=== PATIENT | female | born 1950 | race Caucasian/White ===

== ENCOUNTER 2018-06-08 21:51 | Observation (INO) ==
[2018-06-08] MEDS ORDERED: 0.9 % Sodium Chloride 500 ML IVC ONE (22:28)
[2018-06-08] MEDS ORDERED: Aspirin 81 MG TAB.CHEW PO ONE (22:28)
--- NOTE | 2018-06-08 22:37 | Emergency Department Note ---
Disposition Clinical Impression: Chest pain Qualifiers: Chest pain type: precordial pain Qualified Code(s): R07.2 - Precordial pain Disposition: Admitted As Inpatient Condition: Good Forms: ED Satisfaction Letter, Work/School Release Time of Disposition: 00:23 Abdominal Pain HPI - General Chief Complaint: ED Abdominal Pain Stated Complaint: abdominal pain/cp Time Seen by Provider: 06/08/18 22:06 Source: patient Mode of arrival: ambulatory Limitations: no limitations Nursing Notes Reviewed: Yes Vital Signs Reviewed: Yes - History of Present Illness HPI Narrative: Patient is a 67-year-old female presenting with chest pain and difficulty breathing with abdominal pain. 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 She is currently followed by vascular for this. Patient states that last night around 6:30 PM she began to have mid sternal chest pain described as pressure that radiated throughout her sites bilaterally and into her back. She also has associated shortness of breath nausea without vomiting. She denies diaphoresis. She denies exertional component. She states the pain resolved on its own. She states that she was pain-free throughout today, however this evening she began to have similar pains in her chest. She became concerned given her history of aneurysm and felt as though she needed to be evaluated. She states that when she was diagnosed with her aneurysm multiple years ago, and her she had pain that went straight to her back. On examination, patient denies any current abdominal or chest pain. She does state that abdominal pain is worse after eating. Patient also reports dysuria without hematuria. Pain Scale: 0 - Related Data Home Medications Medication Instructions Recorded Confirmed Labetalol 06/01/17 Lisinopril 06/01/17 Plavix 06/01/17 Previous Rx's Medication Instructions Recorded Tramadol HCl [Ultram] 50 mg PO TID PRN 3 Days #5 tab 08/09/17 Allergies Allergy/AdvReac Type Severity Reaction Status Date / Time levofloxacin [From Levaquin] AdvReac Muscle Pain Verified 08/09/17 17:45 prochlorperazine AdvReac Agitated Verified 08/09/17 17:45 [From Compazine] Sulfa (Sulfonamide AdvReac See Verified 08/09/17 17:45 Antibiotics) Comments sulfamethoxazole AdvReac See Verified 08/09/17 17:46 [From Bactrim] Comments trimethoprim [From Bactrim] AdvReac See Verified 08/09/17 17:46 Comments All systems ED: reviewed and negative except as stated. Review of Systems: As Per HPI Constitutional: Denies: fever, chills, weakness, weight change ENT ED: Denies: ear pain, throat pain, dental pain, hearing loss, epistaxis, congestion, dysphagia Cardiovascular: Reports: chest pain, dyspnea on exertion. Denies: palpitations, syncope Respiratory: Reports: dyspnea. Denies: cough, wheezes, hemoptysis Gastrointestinal: Reports: abdominal pain, nausea. Denies: vomiting, diarrhea, hematemesis Genitourinary: Reports: dysuria. Denies: frequency, hematuria Musculoskeletal: Reports: back pain Integumentary: Denies: rash Neurological: Denies: headache, weakness, numbness, paresthesias, confusion Psychiatric: Denies: anxiety Endocrine: Denies: fatigue Hematological/Lymphatic: Denies: easy bleeding Abdominal Pain PMH - Past Medical History Medical history: Reports: hypertension Female Surgical History: Reports: appendectomy, , cholecystectomy Psychiatric history: Reports: no psych history - Social History Smoking status: Never smoker Alcohol use: Reports: none Drug use: Reports: none Physical Exam - General Limitations: no limitations General appearance: alert, in no apparent distress - Head Head exam: atraumatic, normocephalic, normal inspection - Eye Eye exam: Present: normal appearance, PERRL, EOMI - ENT ENT exam: normal exam, normal oropharynx, mucous membranes moist - Neck Neck exam: Present: normal inspection, full ROM, trachea midline - Chest Chest inspection: Present: normal inspection, symmetric chest wall rise - Respiratory Respiratory exam: Present: normal lung sounds bilaterally - Cardiovascular Cardiovascular exam: Present: regular rate, normal rhythm, normal heart sounds - Abdominal Exam Abdominal exam: Present: soft, Non-Tender. Absent: tenderness, distention, guarding, rebound, rigidity - Extremities Exam Extremities exam: Present: normal inspection, full ROM, normal capillary refill. Absent: tenderness, pedal edema - Expanded Lower Extremity Exam Neurovascular/Tendon exam: Absent: motor deficit, sensory deficit, tendon de ficit - Back Exam Back exam: Present: normal inspection, full ROM. Absent: tenderness - Neurological Exam Neurological exam: Present: alert, oriented X3 - Psychiatric Psychiatric exam: Present: normal affect, normal mood - Skin Skin exam: Present: warm, dry, intact, normal color Course Vital Signs Temperature 98.2 F 06/08/18 22:01 Pulse Rate 61 06/08/18 22:01 Respiratory Rate 16 06/08/18 22:01 Blood Pressure 180/90 06/08/18 22:01 O2 Sat by Pulse Oximetry 97 06/08/18 22:01 Temperature 98.2 F 06/08/18 22:01 Pulse Rate 55 06/08/18 23:13 Respiratory Rate 12 06/08/18 23:13 Blood Pressure 145/64 06/08/18 23:13 O2 Sat by Pulse Oximetry 96 06/08/18 23:13 Oxygen Delivery Oxygen Delivery Room Air Abdominal Pain - MDM Narrative Medical decision making narrative: Patient is a 67-year-old female presenting with chest pain and shortness of breath. Patient with past medical history genital for hypertension, hyperlipidemia and stated aneurysms within the aorta. Patient with symptoms significant for last night with pressure in the mid chest with increased shortness of breath and recurrence this evening. Patient on arrival has no chest pain. Patient also had associated nausea. Pain was nonexertional and relieved on its own.. Patient is not on oxygen at home. Patient on arrival, is afebrile and slightly hypertensive at with 180 systolic blood pressure with repeat blood pressure 150 systolic.. 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 Concern with stated symptoms for PE versus continued aneurysm or dissection versus ACS. CBC, BMP, urinalysis, troponin are all within normal limits. CXR negative. CTA of the chest and abdomen show no sign of aneurysm, dissection, thrombus or emboli. There was an incidental finding of concern for lap band placement. Patient had lap band procedure performed in 2003 at [facility]. At this point in time, concern for ACS, feels that the patient would benefit for admission for further evaluation and recommendations. Also discussed outpatient follow-up with the LAP-BAND for concern of positioning. I did speak directly with the radiologist concerning this. Recommend continued follow-up. At this point in time, we will discuss the patient with hospitalist for admission. - Medical Records Medical records reviewed: Yes I reviewed the patient's medical records. - Lab Data Lab results reviewed: Yes I reviewed the patient's lab results. Result diagrams: 06/08/18 22:42 06/08/18 22:42 Lab Results 06/08/18 06/08/18 06/08/18 Range/Units 22:19 22:42 22:42 WBC (4.3-11.1) K/mcL RBC (3.82-4.97) M/mcL Hgb (11.5-15.4) g/dL Hct (35.3-44.9) % MCV (83.0-100.0) fL MCH (28.0-33.3) pg MCHC (31.6-35.5) g/dL RDW (11.5-14.5) % Plt Count (140-400) K/mcL MPV (9.4-12.4) fL Immature Gran % (0-4) % Seg Neutrophils % % Lymphocytes % % Monocytes % % Eosinophils % % Basophils % % Neutrophils # (1.6-8.9) K/mcL Lymphocytes # (0.6-4.6) K/mcL Monocytes # (0.0-1.3) K/mcL Eosinophils # (0.0-0.6) K/mcL Basophils # (0.0-0.2) K/mcL Platelet Estimate (Normal) Immature Plt Fraction (1.1-6.1) % Microcytosis (Not Present) PT 11.7 (9.4-12.1) Seconds INR 1.0 APTT 35.3 (26.0-36.0) Seconds Sodium 138 (136-145) mEq/L Potassium 4.0 (3.5-5.1) mEq/L Chloride 103 (98-107) mEq/L Carbon Dioxide 28 (23-29) mEq/L BUN 15 (8-23) mg/dL Creatinine 0.78 (0.60-1.20) mg/dL Est GFR ( Amer) > 60 (> 60) Est GFR (Non-Af Amer) > 60 (> 60) BUN/Creatinine Ratio 19 (6-26) Glucose 127 H (70-105) mg/dL Calculated Osmolality 288 (280-300) Calcium 9.4 (8.6-10.3) mg/dL Total Bilirubin 0.5 (0.3-1.0) mg/dL Direct Bilirubin 0.1 (0.0-0.2) mg/dL Indirect Bilirubin 0.4 (0.0-1.2) mg/dL AST 13 (13-39) Units/L ALT 13 (7-52) Units/L Alkaline Phosphatase 49 (34-104) Units/L Troponin I (< 0.04) ng/mL Serum Total Protein 6.4 (6.4-8.9) g/dL Albumin 3.9 (3.5-5.7) g/dL Globulin 2.5 (2.4-3.5) g/dL Albumin/Globulin Ratio 1.6 (1.1-2.2) Lipase 29 (11-82) Units/L Urine Color Yellow (Yellow) Urine Clarity Clear (Clear) Urine pH 7.0 (5.0-8.0) pH Units Ur Specific [place] < 1.005 L (1.010-1.025) Urine Protein Negative (Neg-Trace) mg/dL Urine Glucose (UA) Normal (Normal) mg/dL Urine Ketones Negative (Negative) mg/dL Urine Blood Negative (Negative) Urine Nitrite Negative (Negative) Urine Bilirubin Negative (Negative) Urine Urobilinogen Normal (Normal) mg/dL Ur Leukocyte Esterase Negative (Negative) Ur Culture Indicated? NO (NO) 06/08/18 06/08/18 Range/Units 22:42 22:42 WBC 7.9 (4.3-11.1) K/mcL RBC 5.94 H (3.82-4.97) M/mcL Hgb 12.0 (11.5-15.4) g/dL Hct 39.2 (35.3-44.9) % MCV 66.0 L (83.0-100.0) fL MCH 20.2 L (28.0-33.3) pg MCHC 30.6 L (31.6-35.5) g/dL RDW 15.4 H (11.5-14.5) % Plt Count 186 (140-400) K/mcL MPV 11.4 (9.4-12.4) fL Immature Gran % 0.3 (0-4) % Seg Neutrophils % 61.8 % Lymphocytes % 28.1 % Monocytes % 6.7 % Eosinophils % 2.7 % Basophils % 0.4 % Neutrophils # 4.9 (1.6-8.9) K/mcL Lymphocytes # 2.2 (0.6-4.6) K/mcL Monocytes # 0.5 (0.0-1.3) K/mcL Eosinophils # 0.2 (0.0-0.6) K/mcL Basophils # 0.0 (0.0-0.2) K/mcL Platelet Estimate Normal (Normal) Immature Plt Fraction 4.5 (1.1-6.1) % Microcytosis Present A (Not Present) PT (9.4-12.1) Seconds INR APTT (26.0-36.0) Seconds Sodium (136-145) mEq/L Potassium (3.5-5.1) mEq/L Chloride (98-107) mEq/L Carbon Dioxide (23-29) mEq/L BUN (8-23) mg/dL Creatinine (0.60-1.20) mg/dL Est GFR ( Amer) (> 60) Est GFR (Non-Af Amer) (> 60) BUN/Creatinine Ratio (6-26) Glucose (70-105) mg/dL Calculated Osmolality (280-300) Calcium (8.6-10.3) mg/dL Total Bilirubin (0.3-1.0) mg/dL Direct Bilirubin (0.0-0.2) mg/dL Indirect Bilirubin (0.0-1.2) mg/dL AST (13-39) Units/L ALT (7-52) Units/L Alkaline Phosphatase (34-104) Units/L Troponin I < 0.03 (< 0.04) ng/mL Serum Total Protein (6.4-8.9) g/dL Albumin (3.5-5.7) g/dL Globulin (2.4-3.5) g/dL Albumin/Globulin Ratio (1.1-2.2) Lipase (11-82) Units/L Urine Color (Yellow) Urine Clarity (Clear) Urine pH (5.0-8.0) pH Units Ur Specific [place] (1.010-1.025) Urine Protein (Neg-Trace) mg/dL Urine Glucose (UA) (Normal) mg/dL Urine Ketones (Negative) mg/dL Urine Blood (Negative) Urine Nitrite (Negative) Urine Bilirubin (Negative) Urine Urobilinogen (Normal) mg/dL Ur Leukocyte Esterase (Negative) Ur Culture Indicated? (NO) - Radiology Data Radiology results reviewed: Yes I reviewed the patient's radiology results. Chest X-Ray 06/08/18 22:28 IMPRESSION: No acute cardiopulmonary findings. D/ / Faustino Hammond / Faustino Hammond Interpreting Provider: Faustino Hammond Chest CTA 06/08/18 22:31 IMPRESSION: No evidence of pulmonary embolism or acute pulmonary abnormality. Incomplete visualization of an upper abdominal gastric device with the tip within the lumen of the cardia of the stomach. Clinical correlation is recommended. D/ / Bryce Perales MD / Bryce Perales MD Interpreting Provider: Bryce Perales MD - EKG Data EKG attestation: Yes I reviewed and interpreted this EKG. EKG results narrative: EKG performed at 2221 with ventricular rate of 60, ID interval at 151, QRS at 96, QT at 431, no ST segment elevation, depression or T-wave changes. Compared to previous in 2004 appears unchanged. S.B.A.R. - S.B.A.RRamesh Situation: Demographics, MOA Background: Presenting Complaint, Relevant PMH, Meds, & Allergies Assessment: Vital Signs, Course and respsone to treatment, Exam Concerns, Patient/Family Expectation, Pertinant Lab Results, Outstanding Labs Recommendation: Barrier(s) to disposition, Recommendation based on pending studies, treatments, or consults S.B.A.RRamesh Report Given to: Dr. Cristóbal Amaral Repor Time: 00:23 (Accepted)
[2018-06-08 22:38] LABS: Bilirubin,Urine Negative (Negative); Blood,Urine Negative (Negative); Clarity,Urine Clear (Clear); Color,Urine Yellow (Yellow); Glucose,Urine (UA) Normal (Normal); Ketones,Urine Negative (Negative); Leukocyte Esterase,Urine Negative (Negative); Nitrite,Urine Negative (Negative); Protein,Urine Negative (Neg-Trace); Specific Gravity,Urine < 1.005 (1.010-1.025); Urobilinogen,Urine Normal (Normal)
[2018-06-08 22:54] LABS: Immature Granulocytes % 0.3 % (0-4); Red Cell Distribution Width 15.4 % (11.5-14.5)
[2018-06-08 22:56] LABS: Basophils % 0.4 %; Eosinophils # 0.2 K/mcL (0.0-0.6); Eosinophils % 2.7 %; Hematocrit 39.2 % (35.3-44.9); Immature Platelets 4.5 % (1.1-6.1); Lymphocytes # 2.2 K/mcL (0.6-4.6); Lymphocytes % 28.1 %; Mean Corpuscular HGB Conc 30.6 g/dL (31.6-35.5); Mean Corpuscular Hemoglobin 20.2 pg (28.0-33.3); Mean Platelet Volume 11.4 fL (9.4-12.4); Monocytes # 0.5 K/mcL (0.0-1.3); Monocytes % 6.7 %; Neutrophils # 4.9 K/mcL (1.6-8.9); Platelet Count 186 K/mcL (140-400); Red Blood Count 5.94 M/mcL (3.82-4.97); Segmented Neutrophils % 61.8 %
[2018-06-08 23:01] LABS: Prothrombin Time 11.7 Seconds (9.4-12.1)
[2018-06-08 23:03] LABS: Activated Partial Thrombo Time 35.3 Seconds (26.0-36.0)
[2018-06-08 23:14] LABS: Alanine Aminotransferase 13 Units/L (7-52); Albumin 3.9 g/dL (3.5-5.7); Albumin/Globulin Ratio 1.6 (1.1-2.2); Alkaline Phosphatase 49 Units/L (34-104); Aspartate Amino Transferase 13 Units/L (13-39); BUN/Creatinine Ratio 19 (6-26); Bilirubin,Direct 0.1 mg/dL (0.0-0.2); Bilirubin,Indirect 0.4 mg/dL (0.0-1.2); Bilirubin,Total 0.5 mg/dL (0.3-1.0); Blood Urea Nitrogen 15 mg/dL (8-23); Calcium 9.4 mg/dL (8.6-10.3); Carbon Dioxide 28 mEq/L (23-29); Chloride 103 mEq/L (98-107); Globulin 2.5 g/dL (2.4-3.5); Glucose 127 mg/dL (70-105); Lipase 29 Units/L (11-82); Osmolality,Calculated 288 (280-300); Sodium 138 mEq/L (136-145); Total Protein 6.4 g/dL (6.4-8.9); eGFR For Non-African Americans > 60 (> 60)
[2018-06-08 23:26] LABS: Microcytosis Present (Not Present)
[2018-06-08 23:27] LABS: Platelet Estimate Normal (Normal)
[2018-06-08] MEDS: Isovue-370 500 ML INFUS..BTL IV ONE (23:48)
--- NOTE | 2018-06-09 00:12 | Emergency Department Note ---
Disposition Clinical Impression: Chest pain Qualifiers: Chest pain type: precordial pain Qualified Code(s): R07.2 - Precordial pain Disposition: Admitted As Inpatient Condition: Good Referrals: NONE,PCP [Primary Care Provider] - Forms: ED Satisfaction Letter, Work/School Release General Adult HPI - General Chief complaint: ED Abdominal Pain Stated complaint: abdominal pain/cp Time Seen by Provider: 06/08/18 22:06 Source: patient Mode of arrival: ambulatory Limitations: no limitations - History of Present Illness Pain Scale: 0 - Related Data Home Medications Medication Instructions Recorded Confirmed Labetalol 06/01/17 Lisinopril 06/01/17 Plavix 06/01/17 Previous Rx's Medication Instructions Recorded Tramadol HCl [Ultram] 50 mg PO TID PRN 3 Days #5 tab 08/09/17 Allergies Allergy/AdvReac Type Severity Reaction Status Date / Time levofloxacin [From Levaquin] AdvReac Muscle Pain Verified 08/09/17 17:45 prochlorperazine AdvReac Agitated Verified 08/09/17 17:45 [From Compazine] Sulfa (Sulfonamide AdvReac See Verified 08/09/17 17:45 Antibiotics) Comments sulfamethoxazole AdvReac See Verified 08/09/17 17:46 [From Bactrim] Comments trimethoprim [From Bactrim] AdvReac See Verified 08/09/17 17:46 Comments Constitutional: Denies: fever, chills, weakness, weight change ENT ED: Denies: ear pain, throat pain, dental pain, hearing loss, epistaxis, con gestion, dysphagia Cardiovascular: Reports: chest pain, dyspnea on exertion. Denies: palpitations, syncope Respiratory: Reports: dyspnea. Denies: cough, wheezes, hemoptysis Gastrointestinal: Reports: abdominal pain, nausea. Denies: vomiting, diarrhea, hematemesis Genitourinary: Reports: dysuria. Denies: frequency, hematuria Musculoskeletal: Reports: back pain Integumentary: Denies: rash Neurological: Denies: headache, weakness, numbness, paresthesias, confusion Psychiatric: Denies: anxiety Endocrine: Denies: fatigue Hematological/Lymphatic: Denies: easy bleeding Past Medical History - Past Medical History Medical history: Reports: hypertension Psychiatric history: Reports: no psych history - Social History Smoking Status: Never smoker Smokeless Tobacco Status: No Alcohol use: Reports: none Drug use: Reports: none Physical Exam - General Limitations: no limitations General appearance: alert, in no apparent distress Course Vital Signs Temperature 98.2 F 06/08/18 22:01 Pulse Rate 61 06/08/18 22:01 Respiratory Rate 16 06/08/18 22:01 Blood Pressure 180/90 06/08/18 22:01 O2 Sat by Pulse Oximetry 97 06/08/18 22:01 Temperature 98.2 F 06/08/18 22:01 Pulse Rate 55 06/08/18 23:13 Respiratory Rate 12 06/08/18 23:13 Blood Pressure 145/64 06/08/18 23:13 O2 Sat by Pulse Oximetry 96 06/08/18 23:13 Oxygen Delivery Oxygen Delivery Room Air Medical Decision Making - Lab Data Result diagrams: 06/08/18 22:42 06/08/18 22:42 Lab Results 06/08/18 06/08/18 06/08/18 Range/Units 22:19 22:42 22:42 WBC (4.3-11.1) K/mcL RBC (3.82-4.97) M/mcL Hgb (11.5-15.4) g/dL Hct (35.3-44.9) % MCV (83.0-100.0) fL MCH (28.0-33.3) pg MCHC (31.6-35.5) g/dL RDW (11.5-14.5) % Plt Count (140-400) K/mcL MPV (9.4-12.4) fL Immature Gran % (0-4) % Seg Neutrophils % % Lymphocytes % % Monocytes % % Eosinophils % % Basophils % % Neutrophils # (1.6-8.9) K/mcL Lymphocytes # (0.6-4.6) K/mcL Monocytes # (0.0-1.3) K/mcL Eosinophils # (0.0-0.6) K/mcL Basophils # (0.0-0.2) K/mcL Platelet Estimate (Normal) Immature Plt Fraction (1.1-6.1) % Microcytosis (Not Present) PT 11.7 (9.4-12.1) Seconds INR 1.0 APTT 35.3 (26.0-36.0) Seconds Sodium 138 (136-145) mEq/L Potassium 4.0 (3.5-5.1) mEq/L Chloride 103 (98-107) mEq/L Carbon Dioxide 28 (23-29) mEq/L BUN 15 (8-23) mg/dL Creatinine 0.78 (0.60-1.20) mg/dL Est GFR ( Amer) > 60 (> 60) Est GFR (Non-Af Amer) > 60 (> 60) BUN/Creatinine Ratio 19 (6-26) Glucose 127 H (70-105) mg/dL Calculated Osmolality 288 (280-300) Calcium 9.4 (8.6-10.3) mg/dL Total Bilirubin 0.5 (0.3-1.0) mg/dL Direct Bilirubin 0.1 (0.0-0.2) mg/dL Indirect Bilirubin 0.4 (0.0-1.2) mg/dL AST 13 (13-39) Units/L ALT 13 (7-52) Units/L Alkaline Phosphatase 49 (34-104) Units/L Troponin I (< 0.04) ng/mL Serum Total Protein 6.4 (6.4-8.9) g/dL Albumin 3.9 (3.5-5.7) g/dL Globulin 2.5 (2.4-3.5) g/dL Albumin/Globulin Ratio 1.6 (1.1-2.2) Lipase 29 (11-82) Units/L Urine Color Yellow (Yellow) Urine Clarity Clear (Clear) Urine pH 7.0 (5.0-8.0) pH Units Ur Specific [place] < 1.005 L (1.010-1.025) Urine Protein Negative (Neg-Trace) mg/dL Urine Glucose (UA) Normal (Normal) mg/dL Urine Ketones Negative (Negative) mg/dL Urine Blood Negative (Negative) Urine Nitrite Negative (Negative) Urine Bilirubin Negative (Negative) Urine Urobilinogen Normal (Normal) mg/dL Ur Leukocyte Esterase Negative (Negative) Ur Culture Indicated? NO (NO) 06/08/18 06/08/18 Range/Units 22:42 22:42 WBC 7.9 (4.3-11.1) K/mcL RBC 5.94 H (3.82-4.97) M/mcL Hgb 12.0 (11.5-15.4) g/dL Hct 39.2 (35.3-44.9) % MCV 66.0 L (83.0-100.0) fL MCH 20.2 L (28.0-33.3) pg MCHC 30.6 L (31.6-35.5) g/dL RDW 15.4 H (11.5-14.5) % Plt Count 186 (140-400) K/mcL MPV 11.4 (9.4-12.4) fL Immature Gran % 0.3 (0-4) % Seg Neutrophils % 61.8 % Lymphocytes % 28.1 % Monocytes % 6.7 % Eosinophils % 2.7 % Basophils % 0.4 % Neutrophils # 4.9 (1.6-8.9) K/mcL Lymphocytes # 2.2 (0.6-4.6) K/mcL Monocytes # 0.5 (0.0-1.3) K/mcL Eosinophils # 0.2 (0.0-0.6) K/mcL Basophils # 0.0 (0.0-0.2) K/mcL Platelet Estimate Normal (Normal) Immature Plt Fraction 4.5 (1.1-6.1) % Microcytosis Present A (Not Present) PT (9.4-12.1) Seconds INR APTT (26.0-36.0) Seconds Sodium (136-145) mEq/L Potassium (3.5-5.1) mEq/L Chloride (98-107) mEq/L Carbon Dioxide (23-29) mEq/L BUN (8-23) mg/dL Creatinine (0.60-1.20) mg/dL Est GFR ( Amer) (> 60) Est GFR (Non-Af Amer) (> 60) BUN/Creatinine Ratio (6-26) Glucose (70-105) mg/dL Calculated Osmolality (280-300) Calcium (8.6-10.3) mg/dL Total Bilirubin (0.3-1.0) mg/dL Direct Bilirubin (0.0-0.2) mg/dL Indirect Bilirubin (0.0-1.2) mg/dL AST (13-39) Units/L ALT (7-52) Units/L Alkaline Phosphatase (34-104) Units/L Troponin I < 0.03 (< 0.04) ng/mL Serum Total Protein (6.4-8.9) g/dL Albumin (3.5-5.7) g/dL Globulin (2.4-3.5) g/dL Albumin/Globulin Ratio (1.1-2.2) Lipase (11-82) Units/L Urine Color (Yellow) Urine Clarity (Clear) Urine pH (5.0-8.0) pH Units Ur Specific [place] (1.010-1.025) Urine Protein (Neg-Trace) mg/dL Urine Glucose (UA) (Normal) mg/dL Urine Ketones (Negative) mg/dL Urine Blood (Negative) Urine Nitrite (Negative) Urine Bilirubin (Negative) Urine Urobilinogen (Normal) mg/dL Ur Leukocyte Esterase (Negative) Ur Culture Indicated? (NO) Attestation Statement - Attestation Attestation: I examined this patient and my medical decision-making was reviewed with the Resident Physician. I agree with the documented findings, disposition and treatment plan as described except to the extent set forth below. 67-year-old female presented to the emergency room for chest pain shortness of breath. States she did not feel well all night last night which she describes some chest discomfort. This did radiate to the middle of her upper back region. She denies any history of coronary disease. No previous cardiac stents. She felt short of breath. She felt fine this morning around 9 AM and went to muslim. Her symptoms returned this afternoon. States she discovered a felt rundown with the chest discomfort and shortness of breath. CTA of the chest abdomen and pelvis did not reveal any issue with her aorta. She had told us initially that she thought she had an aneurysm in her chest. Her CTAof the chest does not reveal this. For set of enzymes are normal. EKG was nondiagnostic. Specifically, there is no signs of any ischemia. We will admit the patient overnight for ACS evaluation. Incidental note was his gastric lap band on her CT. She stated that her bariatric surgeon place this in 2003 in [place]. I explained to her that this would need to be evaluated as an outpatient.
--- NOTE | 2018-06-09 00:43 | Internal Med History&Physical ---
Date of Encounter: 06/09/18 Time of Encounter: 00:41 Internal Medicine - H&P: HPI Chief complaint: pain Admitted From: Home () Plans for Post Hospital Care: Home History of present illness: Marilu Irene is a 67 year old morbidly obese woman with hypertension and underwent lap band bariatric surgery in 2003 presented to the ER complaining of chest pain, difficulty breathing as well as abdominal pain. She says the pain started yesterday, describing a midsternal chest discomfort and pressure sensation and radiated to her sides bilaterally and into her back. This was then followed by shortness of breath and nausea but no vomiting or diaphoresis. The pain resolved on its own but again recurred later on this evening. She relates that food exacerbated the pain and was not sure if it was in her epigastrium or chest but felt a sensation of indigestion. She took her BP and found it to be at 230/110 after which she took her medications. Given her history of aortic aneurysm she became concerned and decided to seek medical evaluation. In the ER she was seen clinically stable with a mildly elevated bl ood pressure 180/90. Contrast CT of her abdomen/pelvis showed calcific aortoiliac atherosclerotic disease without evidence of aneurysm or dissection as well as malpositioning of the lap band. She was admitted for further observation. Past Med Surg Social Fam HX - Past Medical History Medical history: hypertension Additional medical history: aortic aneurysm Psychiatric history: no psych history - Past Surgical History Additional surgical history: lap band - Social History Smoking Status: Never smoker Smokeless Tobacco Status: No Alcohol use: none Drug use: none Internal Medicine - H&P: Meds Labetalol 06/01/17 [History] Lisinopril 06/01/17 [History] Plavix 06/01/17 [History] Tramadol HCl [Ultram] 50 mg PO TID PRN 3 Days #5 tab 08/09/17 [Rx] Allergy/AdvReac Type Severity Reaction Status Date / Time levofloxacin [From Levaquin] AdvReac Muscle Pain Verified 08/09/17 17:45 prochlorperazine AdvReac Agitated Verified 08/09/17 17:45 [From Compazine] Sulfa (Sulfonamide AdvReac See Verified 08/09/17 17:45 Antibiotics) Comments sulfamethoxazole AdvReac See Verified 08/09/17 17:46 [From Bactrim] Comments trimethoprim [From Bactrim] AdvReac See Verified 08/09/17 17:46 Comments All Systems PM: A 10-system review of systems was performed and is negative for pertinent fi ndings except as documented above in the HPI. Family history reviewed and noncontributory. - Constitutional Vitals: Temp Pulse Resp BP Pulse Ox 98.2 F 55 12 145/64 96 06/08/18 22:01 06/08/18 23:13 06/08/18 23:13 06/08/18 23:13 06/08/18 23:13 Exam: Vitals: Reviewed General: Well appearing obese white f lying in bed in NAD Skin: Warm and supple. HEENT: Moist mucous membranes. No conjunctivae pallor. Neck: No lymphadenopathy. No JVD. No carotid bruits. No palpable thyroid. Chest: Normal thoracic expansion. Normal breath sounds. Clear to auscultation. Heart: Normal S1 & S2; rhythmic. No rubs or murmurs. Abdomen: Non-distended, soft and non-tender to palpation. No peritoneal reaction. Extremities: No clubbing, cyanosis or edema. No calf tenderness. Normal distal pulses. Neurological: Awake, alert and oriented to person, place and time. No focal deficits. Psych: Affect appropriate. Internal Med - H&P Results - Labs CBC & Chem 7: 06/08/18 22:42 06/08/18 22:42 Labs: Short CBC 06/08/18 Range/Units 22:42 WBC 7.9 (4.3-11.1) K/mcL Hgb 12.0 (11.5-15.4) g/dL Hct 39.2 (35.3-44.9) % Plt Count 186 (140-400) K/mcL Neutrophils # 4.9 (1.6-8.9) K/mcL BMP 06/08/18 22:42 Sodium 138 Potassium 4.0 Chloride 103 Carbon Dioxide 28 BUN 15 Creatinine 0.78 Glucose 127 H Calcium 9.4 Cardiac Enzymes 06/08/18 Range/Units 22:42 Troponin I < 0.03 (< 0.04) ng/mL Liver Function 06/08/18 Range/Units 22:42 Total Bilirubin 0.5 (0.3-1.0) mg/dL Direct Bilirubin 0.1 (0.0-0.2) mg/dL AST 13 (13-39) Units/L ALT 13 (7-52) Units/L Alkaline Phosphatase 49 (34-104) Units/L Albumin 3.9 (3.5-5.7) g/dL Urine 06/08/18 Range/Units 22:19 Urine Color Yellow (Yellow) Urine Clarity Clear (Clear) Urine pH 7.0 (5.0-8.0) pH Units Ur Specific [place] < 1.005 L (1.010-1.025) Urine Protein Negative (Neg-Trace) mg/dL Urine Glucose (UA) Normal (Normal) mg/dL - Impressions ITS Impressions Chest X-Ray 06/08/18 22:28 IMPRESSION: No acute cardiopulmonary findings. D/ / Faustino Hammond / Faustino Hammond Interpreting Provider: Faustino Hammond Chest CTA 06/08/18 22:31 IMPRESSION: No evidence of pulmonary embolism or acute pulmonary abnormality. Incomplete visualization of an upper abdominal gastric device with the tip within the lumen of the cardia of the stomach. Clinical correlation is recommended. D/ / Bryce Perales MD / Bryce Perales MD Interpreting Provider: Bryce Perales MD Abdomen/Pelvis CTA 06/08/18 22:32 IMPRESSION: There is mild calcific aorto iliac atherosclerotic disease with no evidence of aneurysm or dissection. There is mild atherosclerotic disease involving abdominal aortic branch vessels with no significant stenosis. Malposition of the lap band suspected. The cuff of the lap band at least in part projects within the lumen of the cardia of the stomach. Correlation with surgical history and follow-up endoscopy and or upper GI examination would be helpful in further evaluation. Large right paracentral partially calcified disc herniation at T12-L1. Findings were discussed with Pranav Nielsen at 12:12 am on 06/09/2018. D/ / Bryce Perales MD / Bryce Perales MD Interpreting Provider: Bryce Perales MD - Assessment and plan (1) Pain Current Visit: Yes Status: Acute Assessment and plan: Unclear if this is actually cardiac pain. The postprandial relation and atypical features suggest it may be gastrointestinal in origin and perhaps related to the lap band malpositioning found on CT scan. Will give a trial of antacids/GI cocktail to assess. Will also continue monitoring on telemetry as she does have risk factors present and repeat another set of troponins. IF pain recurs there may be an indication for stress testing. (2) TIA (transient ischemic attack) Current Visit: Yes Status: Acute Assessment and plan: Reports having multiple TIAs in the past and is now on clopidogrel. (3) HTN (hypertension) Current Visit: Yes Status: Acute Assessment and plan: Resume lisinopril and labetalol Qualifiers: Hypertension type: essential hypertension Qualified Code(s): I10 - Essential (primary) hypertension (4) Pre-diabetes Current Visit: Yes Status: Acute Assessment and plan: A1C 6.2%. Advised on therapeutic lifestyle choices. (5) H/O laparoscopic adjustable gastric banding Current Visit: Yes Status: Acute Assessment and plan: She will need to follow up with the team that performed the procedure in [place] for re-evaluation of this malpositioning as it could be related to her current pain syndrome especially since it is no longer functional for years as per the patient. - Time Spent With Patient Total time spent is greater than 50% in coordination of care (as documented) at patient's floor/unit and/or counseling patient: Greater than 35 minutes
[2018-06-09] MEDS ORDERED: GI Cocktail 40 ML EACH PO ONE (01:38)
[2018-06-09 06:43] VITALS: BP 155/67
[2018-06-09] MEDS ORDERED: Lisinopril 20 MG TABLET PO SCH (09:00)
--- NOTE | 2018-06-09 11:17 | Discharge Summary ---
- NOTES TO OUTPATIENT PROVIDER Notes to Outpatient Provider: Follow up with PCP in one week. You lap banding was malpositioned, so please reach out to your Bariatric surgeon from [place], [place] for further care. Need to check with PCP to schedule for outpatient nuclear stress test. We put you on Zantac for your GERD problem. Talk to your PCP regarding out pt sleep study, you may need CPAP for your sleep apnea. Date of Encounter: 06/09/18 Time of Encounter: 11:15 - Discharge Diagnosis (1) Chest pain Priority: Primary Status: Acute Qualifiers: Chest pain type: other chest pain Qualified Code(s): R07.89 - Other chest pain; R07.8 - Other chest pain (2) TIA (transient ischemic attack) Priority: Secondary Status: Acute (3) HTN (hypertension) Priority: Secondary Status: Acute Qualifiers: Hypertension type: essential hypertension Qualified Code(s): I10 - Essential (primary) hypertension (4) Pre-diabetes Priority: Secondary Status: Acute (5) H/O laparoscopic adjustable gastric banding Priority: Secondary Status: Acute Hospital course: Ms. Irene is a 67 year old morbidly obese woman with hypertension, morbid obesity and multiple TIA who underwent lap band bariatric surgery presented to the ER complaining of chest pain, difficulty breathing as well as abdominal pain. She says the pain started yesterday, describing a midsternal chest discomfort and pressure sensation and radiated to her sides bilaterally and into her back. This was then followed by shortness of breath and nausea but no vomiting or diaphoresis. The pain resolved on its own but again recurred later on this evening. She relates that food exacerbated the pain and was not sure if it was in her epigastrium or chest but felt a sensation of indigestion. In the ER CT of abdomen/pelvis showed calcific aortoiliac atherosclerotic disease without evidence of aneurysm or dissection as well as malpositioning of the lap band. She was admitted in the hospital and placed on playground monitor. Her serial troponin came back is negative. Her EKG did not show any acute ischemic changes. Her chest pain/epigastric pain seems to more like gastritis / GERD related as well as due to malpositioning of lab band. So started her on Zantac since pt is on plavix she does not want to take PPI. Also recommend to f/u with Bariatric surgeon from [place], [place]. Also recommend to have out pt nuclear stress test. - Time Spent with Patient Total time spent providing and/or coordinating discharge services: - Discharge Medications Prescriptions: raNITIdine HCl [Zantac] 150 mg PO BID #60 tablet Home Medications: Clopidogrel Bisulfate [Plavix] 75 mg PO DAILY 06/09/18 [History] Labetalol [Trandate] 300 mg PO BID 06/09/18 [History] Lisinopril [Zestril] 20 mg PO DAILY 06/09/18 [History] raNITIdine HCl [Zantac] 150 mg PO BID #60 tablet 06/09/18 [Rx] Allergies/Adverse Reactions: Allergy/AdvReac Type Severity Reaction Status Date / Time levofloxacin [From Levaquin] AdvReac Muscle Pain Verified 06/09/18 01:44 prochlorperazine AdvReac Agitated Verified 06/09/18 01:44 [From Compazine] Sulfa (Sulfonamide AdvReac See Verified 06/09/18 01:44 Antibiotics) Comments sulfamethoxazole AdvReac See Verified 06/09/18 01:44 [From Bactrim] Comments trimethoprim [From Bactrim] AdvReac See Verified 06/09/18 01:44 Comments Date of admission: 06/09/18 00:26 Primary care physician: PCP NONE - Constitutional Vitals: Temp Pulse Resp BP Pulse Ox 97.9 F 63 16 155/67 97 06/09/18 06:43 06/09/18 06:43 06/09/18 06:43 06/09/18 06:43 06/09/18 06:43 General appearance: Present: A&O X 3, no acute distress Exam: Gen: Alert, awake, Oriented to time,place and person Chest: Diminished breath sounds B/L, No wheezing, No crackles, No rales Heart: S1S2+ RRR No murmurs Abd: Soft, mild epigastric discomfort, BS +, No organomegaly Ext: No edema, pulses are palpable, No calf tenderness Neuro : Benign findings Skin: No rash. - Patient Status Disposition: Home, Self-Care Condition: Good Overall status at discharge: patient is back to baseline - Discharge Instructions Follow Up With: Mike Montes De Oca MD [Non-Partnered Physician] - - Diet and Activity Activity: increase activity as tolerated Diet: low salt diet
--- NOTE | 2018-06-09 15:19 | Electrocardiograph Report ---
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
[2018-06-09] MEDS ORDERED: *HR* Heparin 5,000 UNIT/ML VIAL SQ SCH (18:00)
== END 2018-06-09 12:28 | disposition home or self-care (01) ==
LOC: 3BNU 21:51 → EMEROOARM 21:51 → SUATTDRO 06-09 00:26 → 3BNU 06-09 01:50
PROVIDERS: ADMIT Internal Medicine; ATTEND Family Medicine